=== PATIENT | female | born 1985 | race Caucasian/White ===

== ENCOUNTER 2016-06-28 20:14 | Emergency (ER) | payer OTHER, MEDICARE ==
[2016-06-28 21:06] LABS: HEMOGLOBIN 11.4 gm/dl (12.3-15.3); RED BLOOD COUNT 4.23 M/UL (4.00-5.10); WHITE BLOOD COUNT 8.5 K/UL (4.5-11.0)
[2016-06-28 21:12] LABS: BUN/CREATININE RATIO 17 (0-10)
== END 2016-06-28 22:50 | disposition home or self-care (01) ==
LOC: ER1 20:14
PROVIDERS: Emergency Medicine
DX: S06.9X9A Unspecified intracranial injury with loss of consciousness of unspecified duration, initial encounter (principal); S13.9XXA Sprain of joints and ligaments of unspecified parts of neck, initial encounter; F90.9 Attention-deficit hyperactivity disorder, unspecified type; G40.909 Epilepsy, unspecified, not intractable, without status epilepticus; R10.32 Left lower quadrant pain; Z88.5 Allergy status to narcotic agent; Z79.899 Other long term (current) drug therapy; V49.40XA Driver injured in collision with unspecified motor vehicles in traffic accident, initial encounter; Y93.89 Activity, other specified; Y92.410 Unspecified street and highway as the place of occurrence of the external cause
CPT/HCPCS: 36415; 70450; 71020; 72125; 80053; 81001; 84703; 85025; 87086; 96360; 96361; 99284; J7050; Q9962

== ENCOUNTER 2020-05-24 14:54 | Emergency (ER) | payer OTHER, MEDICARE ==
[~2020-05-24 14:54] MED LIST: BUTALB-ACETAMI1 EAC1 PO; COLACE 100MG C100 MG PO; IBU600 MG PO; IRON325 M1 PO; PRENATAL VITAM1 EAC3 PO
== END 2020-05-24 20:38 | disposition home or self-care (01) ==
LOC: ER1 14:54
PROVIDERS: Student in an Organized Health Care Education/Training Program
DX: R51.9 Headache, unspecified (principal); M54.9 Dorsalgia, unspecified; G40.909 Epilepsy, unspecified, not intractable, without status epilepticus; F17.210 Nicotine dependence, cigarettes, uncomplicated; V49.40XA Driver injured in collision with unspecified motor vehicles in traffic accident, initial encounter; Y92.410 Unspecified street and highway as the place of occurrence of the external cause; Z88.8 Allergy status to other drugs, medicaments and biological substances
CPT/HCPCS: 70450; 71250; 72125; 72128; 72131; 80307; 81001; 84703; 99284

== ENCOUNTER 2021-10-31 00:58 | Inpatient (IN) | payer MEDICARE, OTHER ==
[~2021-10-31] VITALS: Ht 154.9 cm; Wt 73.9 kg
[2021-10-31 01:39] LABS: HEMOGLOBIN 11.1 gm/dl (12.3-15.3); RED BLOOD COUNT 4.21 M/UL (4.00-5.10); WHITE BLOOD COUNT 10.8 K/UL (4.5-11.0)
[2021-10-31] MEDS ORDERED: KEPPRA500 MG PO (03:37)
[2021-10-31] MEDS ORDERED: SUBOXONE 8 MG-1 EACH PO (03:37)
[2021-11-01 07:28] LABS: HEMOGLOBIN 9.7 gm/dl (12.3-15.3)
[2021-11-01] MEDS ORDERED: IBUPROFEN600 MG PO (18:28)
[2021-11-01] MEDS ORDERED: DOCUSATE SODIU100 MG PO (18:28)
== END 2021-11-02 00:50 | disposition home or self-care (01) | DRG 806 ==
LOC: GENOP 00:58 → OB 01:25
PROVIDERS: ADMIT Obstetrics & Gynecology
PROC: 0UQMXZZ Repair Vulva, External Approach (ICD-10-PCS; principal; 2021-10-31)
PROC: 10E0XZZ Delivery of Products of Conception, External Approach (ICD-10-PCS; principal; 2021-10-31)
PROC: 4A1HXCZ Monitoring of Products of Conception, Cardiac Rate, External Approach (ICD-10-PCS; 2021-10-31)
DX: O99.324 Drug use complicating childbirth (principal); F11.20 Opioid dependence, uncomplicated; Z37.0 Single live birth; O98.42 Viral hepatitis complicating childbirth; O99.354 Diseases of the nervous system complicating childbirth; B19.20 Unspecified viral hepatitis C without hepatic coma; F31.9 Bipolar disorder, unspecified; F90.9 Attention-deficit hyperactivity disorder, unspecified type; O99.344 Other mental disorders complicating childbirth; O70.0 First degree perineal laceration during delivery; Z3A.39 39 weeks gestation of pregnancy; Z28.310 Unvaccinated for COVID-19; Z90.49 Acquired absence of other specified parts of digestive tract; O99.334 Smoking (tobacco) complicating childbirth; Z82.49 Family history of ischemic heart disease and other diseases of the circulatory system; F17.210 Nicotine dependence, cigarettes, uncomplicated; Z83.6 Family history of other diseases of the respiratory system
CPT/HCPCS: 36415; 80307; 82800; 85014; 85018; 85025; 86850; 86900; 86901; J1885; J2590; J7120